=== PATIENT | female | born 1970 | race Caucasian/White ===

== ENCOUNTER 2016-10-28 00:13 | Emergency (ER) | payer SELFPAY ==
[~2016-10-28] VITALS: Ht 157.5 cm; Wt 78.9 kg
[2016-10-28] MEDS ORDERED: LIDOCAINE PF 1% (XYLOCAINE) 2 ML VIAL INJ ONE (00:35)
[2016-10-28] MEDS ORDERED: cefTRIAXone 1 GM (ROCEPHIN) VIAL IM ONE (00:35)
[2016-10-28 01:20] VITALS: BP 126/80
== END 2016-10-28 01:06 | disposition home or self-care (01) ==
LOC: EDUNIT# 00:13 → ED 00:14
DX: J02.9 Acute pharyngitis, unspecified (principal)
CPT/HCPCS: 96372; 99283; J0696; J2001

== ENCOUNTER 2017-01-19 18:13 | Emergency (ER) | payer SELFPAY ==
[~2017-01-19] VITALS: Ht 157.5 cm; Wt 68.0 kg
--- OUTSIDE RECORDS SUMMARY | 2017-01-19 18:17 | XMS REPORT | Continuity of Care Document ---
Author Author [facility] Address Unknown Phone Unavailable Care Team Providers Care Sole Molder Name Role Phone Kenan Jackson MD PCP [phone] Insurance Providers Payer Name Policy Number Subscriber Name Relationship Self Pay Ginny Sage 18 Self / Same As Patient Advance Directives Directive Response Recorded Date/Time Advanced Directives No 10/28/16 12:19am Chief Complaint and Reason for Visit Chief Complaint Fever Reason for Visit [id number] Problems Active Problems Medical Problem Onset Date Status Acute pain 06/23/2013 Acute Cholecystectomy Unknown Acute Strep pharyngitis Unknown Acute Medications Current Home Medications Medication Dose Units Route Directions Days/Qty Instructions Start Date Duloxetine Hcl 60 Mg 06/23/13 Trazodone Hcl 150 Mg 06/23/13 Amoxicillin 500 Mg 500 Mg ORAL 3 Times A Day 10 Days 10/28/16 Past Home Medications Medication Directions Ordered Status Clonazepam 1 Mg Tablet, 06/23/13 Discontinued Amphet Asp/Amphet/D-Amphet 30 Mg Tablet, 60 06/23/13 Discontinued Aripiprazole 5 Mg Tablet, 06/23/13 Discontinued Naproxen Sodium 550 Mg Tablet, 550 Mg Oral Every 8HRS as needed 06/23/13 Discontinued Tramadol Hcl (Ultram) 50 Mg Tablet, 50 Mg Oral Twice A Day 04/02/14 Discontinued Social History Query Response Start Date Stop Date Smoking Status Current some day smoker Hospital Discharge Instructions No hospital discharge instructions. Plan of Care Discharge Date 10/28/16 1:06am Disposition 01 HOME OR SELF-CARE Instructions/Education Provided Sore Throat, Adult (DC) Prescriptions See Medication Section Referrals Kenan Jackson MD - Additional Instructions/Education Warm salt water gargles or 15-20 minutes or as often as needed to relieve inflammation swelling pain and infection. Ibuprofen Tylenol for body aches fever. Take medication as directed until gone. Do not share utensils or glasses. Follow-up with family physician if needed if symptoms not improved within 72 hours Some of your test results may not be complete prior to your leaving the Emergency Department. The Emergency Department is not authorized to give test results over the phone. Please contact the doctor's office listed in this packet of information for your final results. Follow up with your primary care physician or return to the Emergency Department for worsening or worrisome symptoms. * Emergency Department phone number: [phone], x [phone]* MEDICAL RECORD If you need copies of your X-rays, call [phone]. If you need copies of your medical record, including lab results, a signed authorization for release of records will be required. A telephone call for release of Health Information is not allowed. BILLING Billing can sometimes be confusing and frustrating. To help avoid confusion in the future, please take a moment to acquaint yourself with the billing parties for services. SERVICE BILLING CONSTITUTION PARTY Emergency Room Services [facility] Physician Services [facility] X-rays [facility] Patients will receive bills for services from the appropriate provider. If you have any questions about your [facility] bill, our staff will be happy to assist you. Please call [phone], and ask for the billing department. THANK YOU for choosing [facility] as your emergency care provider! Care Plan and Goals ~~Discharge Care Plan~~ Problem: Strep throat/ pharyngitis Goal: Patient will be with out fever and able to eat and drink w/o throat pain. Antibiotics will resolve infection Instructions: Follow instructions of ED physician as instructed on paper work. Call with any questions and return to ED if symptoms worsen Functional Status No functional status results. Allergies, Adverse Reactions, Alerts No known allergies. Immunizations No immunization records. Vital Signs Acute Vital Signs Vital Response Date/Time Temperature (Fahrenheit) 101.4 10/28/2016 12:19am Pulse 133 bpm 10/28/2016 1:20am Respirations 20 10/28/2016 1:20am Height 5 ft 2 in Weight 173 lb Body Mass Index 31.0 kg/m^2 Results No known relevant diagnostic tests, laboratory data and/or discharge summary. Procedures No known history of procedures. Encounters Encounter Location Arrival/Admit Date Discharge/Depart Date Attending Provider Registered Emergency Room [facility] 10/28/16 12:14am RANDEE GOLDEN MD Recent Diagnosis
[2017-01-19] MEDS ORDERED: ONDANSETRON 2 MG/ML (Z0FRAN) 2 ML VIAL IV ONE (18:50)
[2017-01-19] MEDS ORDERED: SODIUM CHLORIDE FLUSH 10 ML SYR IV PRN (18:50)
[2017-01-19] MEDS ORDERED: LORazepam 2 MG/ML (ATIVAN) 1 ML VIAL IV ONE (18:50)
[2017-01-19 18:56] LABS: BASOPHILS % (AUTO) 0 % (0-2); EOSINOPHILS # (AUTO) 0.2 10^3uL; EOSINOPHILS % (AUTO) 1 % (0-4); LYMPHOCYTES # (AUTO) 3.6 X10^3; MEAN CORPUSCULAR HEMOGLOBIN 29.4 PG (26.0-34.0); MEAN CORPUSCULAR HGB CONC 34.4 g/dL (31.0-37.0); MEAN CORPUSCULAR VOLUME 86 FL (80-100); MEAN PLATELET VOLUME 10.2 FL (6.0-9.5); MONOCYTES # (AUTO) 0.8 X10^3; MONOCYTES % (AUTO) 4 % (3-11); NEUTROPHILS % (AUTO) 74 % (51-67); PLATELET COUNT 428 10^3uL (150-450); WHITE BLOOD COUNT 17.63 10^3uL (4.0-11.0)
[2017-01-19 19:03] LABS: ALBUMIN 3.8 g/dL (3.4-5.0); ANION GAP 17.1 MEQ/L (3-15); CALCULATED IONIZED CALCIUM 4.2 mg/dL (3.8-4.6); TOTAL PROTEIN 6.5 g/dL (6.4-8.5)
[2017-01-19 20:10] LABS: BILIRUBIN,URINE Negative (Negative); COLOR,URINE Yellow; GLUCOSE, URINE (UA) Negative (Negative); LEUKOCYTE ESTERASE ,URINE Negative (Negative); PH,URINE 5.5 (5.0 - 8.0); UROBILINOGEN,URINE 0.2 mg/dL (0.2-1.0)
[2017-01-19 20:13] LABS: CLARITY,URINE Slightly Cloudy
--- NOTE | 2017-01-19 20:45 | NUR ---
Pt to CT scan via stretcher.
--- NOTE | 2017-01-19 21:15 | NUR ---
Pt back to room via stretcher.
[2017-01-19] MEDS ORDERED: HYDROmorphone 1 MG/ML (DILAUDID) SYRINGE IV ONE ×2 (22:05→22:50)
[2017-01-19 22:37] VITALS: BP 119/77
--- NOTE | 2017-01-19 22:41 | NUR ---
Pt states pain medication has not helped her pain. Dr. Edwards notified. Awaiting orders.
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
== END 2017-01-19 23:25 | disposition short-term general hospital (02) ==
LOC: ED 18:13
DX: S36.032A Major laceration of spleen, initial encounter (principal); R07.9 Chest pain, unspecified; R93.2 Abnormal findings on diagnostic imaging of liver and biliary tract; R94.8 Abnormal results of function studies of other organs and systems; Y00.XXXA Assault by blunt object, initial encounter; Y92.009 Unspecified place in unspecified non-institutional (private) residence as the place of occurrence of the external cause
CPT/HCPCS: 36415; 74177; 80053; 81003; 83690; 84703; 85025; 96361; 96374; 96375; 96376; 99283; J1170; J2060; J2405; J7030; Q9967; 99291

== ENCOUNTER → 2017-01-19 | Outpatient (CLI) | payer SELFPAY ==
[~2017-01-19] MED LIST: AMOX500C5 PO; AMPH30TA2; ARIP5TAB5; CLON1TAB3; DULO60CA7; NAPR550T PO; TRAZ150T72; TRM50T PO
== END ==
LOC: EMS 18:09
PROVIDERS: ATTEND Surgery Surgical Critical Care
DX: R10.13 Epigastric pain (principal); S36.039A Unspecified laceration of spleen, initial encounter; W22.8XXA Striking against or struck by other objects, initial encounter